=== PATIENT | male | born 1995 | race Caucasian/White ===

== ENCOUNTER 2017-05-31 19:05 | Emergency (ER) | END 2017-05-31 23:48 | disposition home or self-care (01) ==

== ENCOUNTER 2018-11-03 18:27 | Emergency (ER) | payer BC, OTHER ==
[~2018-11-03] VITALS: Ht 170.2 cm; Wt 74.3 kg
[~2018-11-03 18:27] MED LIST: ACET325T33 PO; AZIT500T3 PO; CIPR-193 PO; DICY10CA40 PO; ONDA4TAB14 PO; RANI-535 PO
[2018-11-03 18:48] VITALS: Ht 170.2 cm; Wt 74.3 kg
[2018-11-03] MEDS ORDERED: morphine 4 MG/ML VIAL IV STA (19:37)
[2018-11-03] MEDS ORDERED: ONDANSETRON 4 MG INJ IV STA (19:37)
[2018-11-03] MEDS ORDERED: SOD CHLORIDE 0.9% 1,000 ML IV STA (19:37)
[2018-11-03 21:17] VITALS: BP 125/72; PULSE 65; RESP 14
== END 2018-11-03 21:29 | disposition home or self-care (01) ==
LOC: FTE 18:27
DX: R10.31 Right lower quadrant pain (principal); R19.7 Diarrhea, unspecified
CPT/HCPCS: 36415; 74176; 80053; 81003; 83690; 85025; 96361; 96374; 96375; J2270; J2405; J7030; Z7502